=== PATIENT | male | born 1945 | race Two or more races ===

== ENCOUNTER → 2017-02-09 13:26 | Emergency (ER) | payer MEDICARE, OTHER ==
[~2017-02-09 13:26] MED LIST: Phenylephrine 1% NASAL* 15 ML BOT BOTH NARES ONE
[2017-02-09 14:39] VITALS: BP 140/96
--- NOTE | 2017-02-09 18:06 | ED ---
Throat Pain/Nasal Congestion - HPI Summary HPI Summary: Patient is a patient of Dr. Mary and has undergone several procedures to decrease nasal bleeding, but due to scar tissue deep in the nose they have had trouble completely controlling the issue. Patient was told to present to the ED if bleeding continued because he would need to be sedated with general anesthesia if bleeding continued. Today at lunch his nose began to drip and did not stop, so he came to the ED. By the time he was seen, two hours after presentation, the bleeding had stopped. The patient admits it was a scant amount of blood. He denies lightheadedness, or other symptoms. - History of Current Complaint Chief Complaint: EDEpistaxis Time Seen by Provider: 02/09/17 15:07 Hx Obtained From: Patient Onset/Duration: Gradual Onset, Resolved Severity: Mild Associated Signs And Symptoms: Positive: Nasal Discharge - blood now stopped Cough: None - Allergies/Home Medications Allergies/Adverse Reactions: Allergies Allergy/AdvReac Type Severity Reaction Status Date / Time Simvastatin Allergy Severe Rash And Verified 08/28/16 08:01 Itching EPOXY Allergy Unknown Uncoded 08/28/16 08:01 Reaction Details PMH/Surg Hx/FS Hx/Imm Hx Endocrine/Hematology History: Reports: Other Endocrine/Hematological Disorders - gout Cardiovascular History: Reports: Hx Hypertension - ON MEDICATION FOR, Other Cardiovascular Problems/Disorders - hyperlipidemia Denies: Hx Pacemaker/ICD GI History: Reports: Hx Gastroesophageal Reflux Disease, Hx Ulcer - stomach ulcer History: Reports: Hx Benign Prostatic Hyperplasia, Other Problems/ Disorders - prostatitis Musculoskeletal History: Reports: Hx Back Problems, Other Musculoskeletal History - HAD PROCEDURE ON BACK 2-3 WEEKS AGO-DR. BALDERAS- [facility] Sensory History: Reports: Hx Contacts or Glasses, Hx Hearing Aid - left ear Opthamlomology History: Reports: Hx Contacts or Glasses Neurological History: Reports: Other Neuro Impairments/Disorders - PAIN CLINIC PT Psychiatric History: Reports: Hx Anxiety, Hx Depression, Hx Post Traumatic Stress Disorder Denies: Hx Panic Disorder - Surgical History Surgery Procedure, Year, and Place: knee arthroscopy X 2, NOSE 45 YRS AGO, EPIDURAL SPINAL INJECTION 1 WEEK AGO[facility] [place] Hx Anesthesia Reactions: Yes - WOKE UP DURING PROCEDURES- ENDOSCOPY AND COLONOSCOPY Infectious Disease History: Reports: Hx Hepatitis - positive for Hep C Denies: Traveled Outside the [place] in Last 30 Days - Family History Known Family History: Positive: None - Social History Occupation: Retired Lives: With Family Alcohol Use: Occasionally Alcohol Amount: 5 oz week Substance Use Type: Reports: None Smoking Status (MU): Current Some Day Smoker Type: Cigars Amount Used/How Often: occasionally - rarely smokes cigars Have You Smoked in the Last Year: Yes Cessation Counseling: Patient Advised to Stop Review of Systems Positive: Nasal Discharge - blood now controlled Negative: Chest Pain Negative: Headache, Weakness All Other Systems Reviewed And Are Negative: Yes Physical Exam Triage Information Reviewed: Yes Vital Signs On Initial Exam: Initial Vitals Temp Pulse Resp BP Pulse Ox 98.3 F 77 20 138/94 98 02/09/17 13:31 02/09/17 13:31 02/09/17 13:31 02/09/17 13:31 02/09/17 13:31 Vital Signs Reviewed: Yes Appearance: Positive: Well-Appearing, No Pain Distress, Well-Nourished Skin: Positive: Warm, Skin Color Reflects Adequate Perfusion, Dry, Soft Head/Face: Positive: Normal Head/Face Inspection Eyes: Positive: EOMI, RIVAS, Conjunctiva Clear ENT: Positive: Hearing grossly normal, Pharynx normal - no blood or clot noted in posterior pharynx, Nasal drainage - dried blood in left nare Neck: Positive: Supple, Nontender Respiratory/Lung Sounds: Positive: Breath Sounds Present Cardiovascular: Positive: RRR Neurological: Positive: Sensory/Motor Intact, Alert, Oriented to Person Place, Time, NV Bundle Intact Distally, Normal Gait Psychiatric: Positive: Affect/Mood Appropriate AVPU Assessment: Alert Diagnostics - Vital Signs Vital Signs Temp Pulse Resp BP Pulse Ox 02/09/17 14:38 98.2 F 76 18 140/96 02/09/17 13:36 98.2 F 74 18 138/94 98 02/09/17 13:31 98.3 F 77 20 138/94 98 - Laboratory Lab Statement: Any lab studies that have been ordered have been reviewed, and results considered in the medical decision making process. EENT Course/Dx - Course Course Of Treatment: I spoke with the production assembler ENT, Dr. Dominguez, who advised [facility] and to call him personally if symptoms worsen. - Differential Diagnoses Differential Diagnoses: Abrasion, Epistaxis, Foreign Body, Penetrating Injury, Sinusitis - Diagnoses Provider Diagnoses: Epistaxis Discharge - Discharge Plan Condition: Stable Disposition: HOME Patient Education Materials: Nosebleed (ED) Referrals: Fabrice Byrd MD [Primary Care Provider] - Additional Instructions: Please use the spray medication as directed. Avoid blowing your nose and lean forward if bleeding begins. Call Dr. Dominguez at [phone] if symptoms worsen or you have concerns.
== END | disposition home or self-care (01) ==
LOC: ED 13:26
DX: R04.0 Epistaxis (principal); F32.9 Major depressive disorder, single episode, unspecified; F41.9 Anxiety disorder, unspecified; I10 Essential (primary) hypertension; E78.5 Hyperlipidemia, unspecified
CPT/HCPCS: 99282; A9270-GY